=== PATIENT | female | born 2000 ===

== ENCOUNTER 2024-09-05 13:15 | Inpatient (IN) | payer OTHER ==
[~2024-09-05] VITALS: Ht 160 cm; Wt 82.1 kg
[2024-09-08] VITALS (8 sets, daily range): BP systolic 111–135; BP diastolic 71–87
[2024-09-08] MEDS ORDERED: AMPICILLIN SODIUM 2,000 MG VIAL IV ONE (00:45)
[2024-09-08] MEDS ORDERED: RINGERS SOLUTION,LACTATED 1,000 ML IV SCH (00:45)
[2024-09-08] MEDS ORDERED: MORPHINE SULFATE 4 MG/ML CARTRIDGE IV PRN (00:45)
[2024-09-08] MEDS ORDERED: PRENATA CHEWAB1 EACH PO (00:59)
[2024-09-08] MEDS ORDERED: IRON325 MG PO (01:00)
[2024-09-08] MEDS ORDERED: AMOX1TAB5 PO (01:00)
[2024-09-08 01:08] LABS: URINE APPEARANCE Clear; URINE BILIRRUBIN Negative (NEGATIVE); URINE BLOOD Large; URINE COLOR Yellow; URINE GLUCOSE Negative (NEGATIVE); URINE KETONE 15 (NEGATIVE); URINE LEUKOCYTE Small; URINE NITRATE Negative; URINE PROTEIN Trace (NEGATIVE); URINE UROBILINOGEN 1.0 E.U./dl
[2024-09-08 01:09] LABS: BASO % 0.2 % (0.1-1.2); EOS # 0.03 (0.04-0.54); EOS % 0.2 % (0.7-7.0); LYMPH # 1.39 (1.18-3.74); LYMPH % 7.8 % (19.3-53.1); MEAN PLATELET VOLUME 10.60 fl (9.4-12.4); MONO # 0.91 (0.24-0.82); MONO % 5.1 % (4.7-12.5); NEUT # 15.27 (1.56-6.13); NEUT % 85.9 % (34.0-71.1); RED CELL DISTRIBUTION WIDTH 16.1 % (11.6-14.4)
[2024-09-08 01:11] LABS: URINE BACTERIA 95.9 uL (0.0-1933); URINE EPITHELIAL CELLS 31.2 uL (0.0-38.8); URINE RBC 83.1 uL (0.0-20.8); URINE WBC 130.1 uL (0.0-23.2)
[2024-09-08 01:17] LABS: URINE CAST 0.00 uL (0.0-1.40)
[2024-09-08 01:33] LABS: ALT/SGPT 20.0 U/L (12-78); AST/SGOT 28.0 U/L (15-37); BILIRUBIN TOTAL 0.33 mg/dL (0.3-1.2); BUN CREA RATIO 16.0 (7.0-25.0); CREATININE SERUM 0.63 mg/dL (0.55-1.02); GFR 116.1; GLOBULINA 4.1 G/DL (2.4-3.5); GLUCOSE FASTING 103.0 mg/dL (65-100); OSMOLALITY SERUM 279.0 MOSM/KG (275-295)
[2024-09-08 01:48] LABS: INR < 0.93
[2024-09-08] MEDS ORDERED: AMPICILLIN SODIUM 1,000 MG VIAL IV SCH (06:00)
[2024-09-08] MEDS ORDERED: ACETAMINOPHEN 500 MG GEL..CAP PO PRN (06:15)
[2024-09-08] MEDS ORDERED: OXYTOCIN 1,000 ML IV SCH (06:15)
[2024-09-08] MEDS ORDERED: CHLORHEXIDINE GLUCONATE 120 ML BOTTLE TP SCH (06:15)
[2024-09-08] MEDS ORDERED: ERYTHROMYCIN BASE OPHT 1GM EACH TUBE OP ONE (06:30)
[2024-09-08] MEDS ORDERED: LIDOCAINE HCL 1% 10ML VIAL IJ ONE (06:30)
[2024-09-08] MEDS ORDERED: PNV,CALCIUM 72/IRON/FOLIC ACID 1 TAB TABLET PO SCH (09:00)
[2024-09-08 09:37] LABS: BASO % 0.1 % (0.1-1.2); EOS # 0.00 (0.04-0.54); EOS % 0.0 % (0.7-7.0); LYMPH # 0.95 (1.18-3.74); LYMPH % 4.1 % (19.3-53.1); MEAN PLATELET VOLUME 9.90 fl (9.4-12.4); MONO # 1.14 (0.24-0.82); MONO % 5.0 % (4.7-12.5); NEUT # 20.63 (1.56-6.13); NEUT % 90.0 % (34.0-71.1); RED CELL DISTRIBUTION WIDTH 16.3 % (11.6-14.4)
[2024-09-08] MEDS ORDERED: FERROUS SULFATE 325 MG TABLET.EC PO SCH (17:21)
[2024-09-09 00:43] VITALS: BP 125/76
[2024-09-09 05:45] VITALS: BP 104/66
[2024-09-09 08:24] VITALS: BP 112/71
[2024-09-09] MEDS ORDERED: FERROUS SULFATE 325 MG TABLET.EC PO SCH (13:31)
[2024-09-09 17:23] VITALS: BP 119/71
[2024-09-09 21:39] VITALS: BP 120/75
[2024-09-10 00:09] VITALS: BP 110/71
[2024-09-10 04:00] VITALS: BP 115/72
[2024-09-10 08:00] VITALS: BP 119/80
== END 2024-09-10 13:45 | disposition home or self-care (01) | DRG 807 ==
LOC: OB/GYN 09-08 00:34 → LDR 09-08 00:34 → OB/GYN 09-08 06:17
PROVIDERS: Obstetrics & Gynecology; ADMIT Specialist; ATTEND Specialist
PROC: 10E0XZZ Delivery of Products of Conception, External Approach (ICD-10-PCS; principal; 2024-09-08)
PROC: 0W8NXZZ Division of Female Perineum, External Approach (ICD-10-PCS; 2024-09-08)
PROC: 4A1HXCZ Monitoring of Products of Conception, Cardiac Rate, External Approach (ICD-10-PCS; 2024-09-08)
DX: O80 Encounter for full-term uncomplicated delivery (principal); Z37.0 Single live birth; Z3A.39 39 weeks gestation of pregnancy